=== PATIENT | male | born 1930 | race African-American/Black ===

== ENCOUNTER 2016-11-03 20:41 | Emergency (ER) | payer MEDICARE, OTHER ==
[~2016-11-03 20:41] MED LIST: Iopamidol 370 76% 100 ML VIAL ONE
[2016-11-03] MEDS ORDERED: Ondansetron HCl/PF 4 MG/2 ML Vial ONE (21:11)
[2016-11-03] MEDS ORDERED: Fentanyl 100 MCG/2 ML VIAL ONE ×2 (21:11→22:06)
[2016-11-03 21:17] LABS: Hematocrit 32.9 % (42.0-52.0); Mean Platelet Volume 6.2 fL (7.4-10.4); Neutrophil 73 % (42-75); Red Blood Cell (RBC) Count 3.74 mill/uL (4.70-6.10); White Blood Cell (WBC) Count 8.8 thou/uL (4.8-10.8)
[2016-11-03 21:31] LABS: Troponin I 0.013 ng/mL (< 0.028)
[2016-11-03 21:35] LABS: ALT (SGPT) 7 U/L (0-55); AST (SGOT) 13 U/L (5-34); Alkaline Phosphatase 62 U/L (40-150); Amylase 103 U/L (20-160); Anion Gap 18 mmol/L (10-20); BUN (Urea Nitrogen) 18 mg/dL (8.4-25.7); Bilirubin, Total 0.4 mg/dL (0.2-1.2); CK (CPK) 78 U/L (30-200); Calc. Creatinine Clearance 0 mL/min (70-130); Carbon Dioxide 23 mmol/L (23-31); Chloride 105 mmol/L (98-107); Estimated GFR-MDRD 82; Globulin 2.9 g/dL (2.4-3.5); Lipase 19 U/L (8-78)
[2016-11-03 22:13] LABS: Bilirubin Negative (Negative); Blood, Urine Trace (Negative); Glucose, Urine (Dipstick) Negative (Negative); Ketone, Urine Negative (Negative); Nitrite Negative (Negative); Protein, Urine (Dipstick) Negative (Neg-Trace); Urobilinogen 0.2 mg/dL (0.2-1.0)
[2016-11-03 22:14] LABS: Bacteria/HPF None Seen HPF (None Seen); Squamous Epithelial None Seen HPF (0-3); WBC/HPF None Seen HPF (0-3)
--- NOTE | 2016-11-03 22:15 | CT ---
CT OF ABDOMEN AND PELVIS PERFORMED WITH CONTRAST ENHANCEMENT: 11/03/16 COMPARISON: CT of the abdomen performed 04/04/16. Also, abdomen CT and gallbladder ultrasound performed 04/12/16. The lung bases show some chronic change. The liver shows no focal abnormalities. There is some pneumobilia present which is not seen on the p revious studies of uncertain etiology. There is no ductal dilatation seen. The gallbladder is disten ded. There is suggestion of some focal areas of wall thickening within the gallbladder. This could b e on the basis of some small stones. The pancreas is atrophic. The spleen is normal in size. Right and left adrenal glands are unremarkable. Bilateral renal cysts are noted. There is no signif icant periaortic or mesenteric adenopathy. The abdominal aorta is minimally ectatic. There is fairly minimal stool within the colon. Minimal fluid filled distention to the small bowel loops and cecum are noted. CT OF PELVIS PERFORMED WITH CONTRAST ENHANCEMENT: A fat containing left inguinal hernia is noted. No evidence of adenopathy or mass. There are arthrit ic changes of the spine and hips. IMPRESSION: 1. Small hiatal hernia. There is mild fluid filled distention of the stomach but no signs for o bstruction. 2. Pneumobilia. The air within the biliary system is of uncertain etiology. I am not certain if the patient has had some type of endoscopic procedure in the past that would account for this. 3. Mild gallbladder distention. If clinically indicated, ultrasound would be suggested for furt her assessment. 4. Bilateral renal cysts. 5. The appendix is difficult to definitively identify, but I see no inflammatory process in thi s area. 1. POS: JUAN
== END 2016-11-03 22:53 | disposition home or self-care (01) ==
LOC: NAV ERS 20:41
DX: K83.8 Other specified diseases of biliary tract (principal); E11.9 Type 2 diabetes mellitus without complications; I10 Essential (primary) hypertension; J44.9 Chronic obstructive pulmonary disease, unspecified; Z79.84 Long term (current) use of oral hypoglycemic drugs; Z79.82 Long term (current) use of aspirin; Z87.891 Personal history of nicotine dependence
CPT/HCPCS: 36415; 74177; 80053; 81003; 81015; 82150; 82550; 82553; 83690; 84484; 85025; 93005; 96374; 96375; 96376; J2405; J3010

== ENCOUNTER 2016-11-27 08:31 | Outpatient (CLI) | payer MEDICARE, MEDICAID ==
[2016-11-27 12:31] LABS: Hemoglobin A1c 5.6 % (4.0-6.0)
== END 2016-11-27 08:32 ==
LOC: NAVSJIPCSP 08:31
PROVIDERS: ATTEND Internal Medicine
DX: E78.5 Hyperlipidemia, unspecified (principal); D64.9 Anemia, unspecified; E11.42 Type 2 diabetes mellitus with diabetic polyneuropathy
CPT/HCPCS: 36415; 80061; 83036

== ENCOUNTER 2017-04-24 09:21 | Outpatient (CLI) | payer MEDICARE ==
[2017-04-24 17:26] LABS: Hemoglobin A1c 5.8 % (4.0-6.0)
== END 2017-04-24 09:22 | disposition home or self-care (01) ==
LOC: NAVSJIPCSP 09:21
PROVIDERS: ATTEND Internal Medicine
DX: E78.5 Hyperlipidemia, unspecified (principal); E11.42 Type 2 diabetes mellitus with diabetic polyneuropathy; Z92.29 Personal history of other drug therapy
CPT/HCPCS: 36415; 80061; 83036

== ENCOUNTER 2019-11-14 21:54 | Inpatient (IN) | payer MEDICARE, MEDICAID ==
--- NOTE | 2019-11-14 22:38 | RAD ---
EXAM: Portable chest PROVIDED CLINICAL HISTORY: Shortness of breath COMPARISON: 12/30/2015 FINDINGS: Cardiac and mediastinal silhouette is within normal limits. No focal consolidation, pleural fluid or pneumothorax evident. Extensive chronic lung changes appear similar to prior. IMPRESSION: No evidence for an acute cardiopulmonary process.
[2019-11-14 22:47] LABS: #Lymphocytes 1.2 thou/uL (1.20-3.40); #Monocytes 0.6 thou/uL (0.11-0.59); #Neutrophils 2.8 thou/uL (1.40-6.50); %Basophils 0.6 % (0.0-1.0); %Eosinophils 0.4 % (0.0-10.0); %Lymphocytes 25.7 % (21.0-51.0); %Monocytes 13.5 % (0.0-10.0); %Neutrophils 59.9 % (42.0-75.0); Anisocytosis MODERATE=16-30 cells (100X) (0-5/hpf); Hemoglobin 6.4 g/dL (14.0-18.0); MDiff Complete? YES; Macrocytosis MODERATE=16-30 cells (100X) (0-5/hpf); Mean Corpuscular HGB CONC 29.2 g/dL (32.0-36.0); Mean Corpuscular Hemoglobin 23.8 pg (27.0-31.0); Mean Corpuscular Volume 81.6 fL (78.0-98.0); Mean Platelet Volume 5.6 fL (7.4-10.4); Platelet Count 352 thou/uL (130-400); Platelet Morphology Comment Appears Adequate; Poikilocytosis MODERATE=16-30 cells (100X) (0-5/hpf); RBC Distribution Width 20.4 % (11.5-14.5); Red Blood Cell (RBC) Count 2.68 mill/uL (4.70-6.10); Target Cells MODERATE= 6-15 cells (100X) (0-1/hpf); White Blood Cell (WBC) Count 4.6 thou/uL (4.8-10.8)
[2019-11-14 22:53] LABS: ALT (SGPT) 6 U/L (8-55); AST (SGOT) 11 U/L (5-34); Albumin 2.9 g/dL (3.4-4.8); Alkaline Phosphatase 93 U/L (40-110); Anion Gap 14 mmol/L (10-20); BUN (Urea Nitrogen) 10 mg/dL (8.4-25.7); Bilirubin, Total 0.3 mg/dL (0.2-1.2); Calc. Creatinine Clearance 0 mL/min (70-130); Carbon Dioxide 24 mmol/L (23-31); Chloride 102 mmol/L (98-107); Estimated GFR-MDRD Greater than 90; Globulin 3.1 g/dL (2.4-3.5); Glucose 109 mg/dL (83-110); Potassium 4.3 mmol/L (3.5-5.1); Sodium 136 mmol/L (136-145)
[2019-11-15] MEDS ORDERED: Sodium Chloride 0.9% 500 ML ONE ×2 (00:48→01:02)
[2019-11-15] MEDS ORDERED: Ondansetron PF 4 MG/2 ML Vial ONE (01:21)
[2019-11-15] MEDS ORDERED: Furosemide 20 MG/2 ML VIAL ONE (02:00)
[2019-11-15 04:37] VITALS: BMI 16.5
[2019-11-15 07:37] LABS: #Lymphocytes 0.6 thou/uL (1.20-3.40); #Monocytes 0.7 thou/uL (0.11-0.59); #Neutrophils 6.3 thou/uL (1.40-6.50); %Basophils 0.6 % (0.0-1.0); %Lymphocytes 7.2 % (21.0-51.0); %Monocytes 9.1 % (0.0-10.0); %Neutrophils 83.1 % (42.0-75.0); Hemoglobin 9.7 g/dL (14.0-18.0); Mean Corpuscular HGB CONC 31.3 g/dL (32.0-36.0); Mean Corpuscular Hemoglobin 25.7 pg (27.0-31.0); Mean Corpuscular Volume 82.2 fL (78.0-98.0); Mean Platelet Volume 5.5 fL (7.4-10.4); Platelet Count 279 thou/uL (130-400); RBC Distribution Width 17.5 % (11.5-14.5); Red Blood Cell (RBC) Count 3.77 mill/uL (4.70-6.10); White Blood Cell (WBC) Count 7.6 thou/uL (4.8-10.8)
[2019-11-15 07:53] LABS: Anion Gap 16 mmol/L (10-20); Globulin 3.2 g/dL (2.4-3.5)
[2019-11-15 08:23] LABS: ALT (SGPT) 7 U/L (8-55); AST (SGOT) 12 U/L (5-34); Albumin 2.9 g/dL (3.4-4.8); Alkaline Phosphatase 94 U/L (40-110); BUN (Urea Nitrogen) 10 mg/dL (8.4-25.7); Bilirubin, Total 0.6 mg/dL (0.2-1.2); Calc. Creatinine Clearance 41 mL/min (70-130); Calcium 8.1 mg/dL (7.8-10.44); Carbon Dioxide 25 mmol/L (23-31); Chloride 98 mmol/L (98-107); Estimated GFR-MDRD Greater than 90; Glucose 93 mg/dL (83-110); Potassium 4.2 mmol/L (3.5-5.1); Protein, Total 6.1 g/dL (5.8-8.1); Sodium 135 mmol/L (136-145)
--- NOTE | 2019-11-15 08:34 | CT ---
PRELIMINARY REPORT/[facility]/EMERGENCY AFTER HOURS PROCEDURE: EXAM: CT Abdomen and Pelvis with Intravenous Contrast CLINICAL HISTORY: ABD PAIN. CHOLECYSTECTOMY 2018. TECHNIQUE: Axial computed tomography images of the abdomen and pelvis with intravenous contrast. CONTRAST: With; ISOVUE 370 96 ml COMPARISON: None provided. FINDINGS: LUNG BASES: No basilar airspace consolidation or pleural effusion. Bibasilar subsegmental atelectasi s. Centrilobular emphysematous changes. Coronary artery disease. LIVER: The liver is hypoenhancing. Irregular hypoenhancing lesion in the right lobe of the liver scott suring 2.1 cm, series 2 image 16. Hypoenhancing lesion in the right lobe of the liver measuring 0.7 cm. Nodular enhancing lesion in the right lobe measuring 0.6 cm. Hypoenhancing lesion in the left l obe liver measuring 2.3 cm. GALLBLADDER AND BILE DUCTS: Unremarkable. No calcified stone. No ductal dilation. PANCREAS: Pancreatic atrophy. SPLEEN: Unremarkable. ADRENAL GLANDS: Unremarkable. KIDNEYS, URETERS, AND BLADDER: Several bilateral simple renal cyst measuring up to 1.3 cm on the righ t side and 2.8 cm on the left side. No hydronephrosis or nephrolithiasis. No ureteral or bladder crystal culi. STOMACH AND BOWEL: No obstruction. No wall thickening. No CT evidence of colitis or acute diverticuli tis. APPENDIX: No CT evidence for appendicitis. PERITONEUM: No free fluid. No free air. LYMPH NODES: No lymphadenopathy. REPRODUCTIVE: The prostate gland is enlarged. The seminal vesicles are normal. VASCULATURE: No aortic aneurysm. Atherosclerosis. BONES: No fracture or suspicious osseous abnormality. Multilevel degenerative disc disease. 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 ABDOMINAL WALL AND SOFT TISSUES: Unremarkable. IMPRESSION: No acute intra-abdominal or pelvic abnormality. Fat infiltration of the liver. Several hypoenhancing lesions in the liver and nodular enhancing lesi on in the right lobe of the liver. Follow-up with a liver protocol MRI is recommended. Pancreatic atrophy. Prostatomegaly. ELECTRONICALLY SIGNED BY: Ismael Cosme MD Nov 15, 2019 2:58:33 AM SHIPPING CLERK CRATING This report is intended for review by the ordering physician only, in accordance of law. If you recei ve this report in error, please call [facility] at [phone]. FINAL REPORT CT ABDOMEN AND PELVIS WITH IV CONTRAST: Comparison made to CT of 11/03/16. There are irregular ill-defined areas of low attenuation in the liver as described on the preliminary report. These are new from the prior study. The stomach is distended. Spleen and pancreas unremarkable. Post cholecystectomy changes. Renal cysti c lesions are noted. Small bowel loops show nonspecific distention. Aorta is calcified. No evidence of acute process. I am in agreement with the preliminary report issued by [facility]. POS: JUAN
[2019-11-15] MEDS ORDERED: Iopamidol 370 76% 100 ML VIAL ONE ×2 (09:00)
--- NOTE | 2019-11-15 17:59 | HP ---
CHIEF COMPLAINT: Fatigue, weakness, and shortness of breath. BRIEF HISTORY: This is an 88-year-old male, whom I have taken care of for a long time, presented to the emergency room with apparently worsening shortness of breath, weakness, and fatigue. Workup showed hemoglobin of 6.1. He was admitted to the hospital and given 2 units of blood. He also looked very cachectic and CT abdomen and pelvis was done which shows multiple nodules in the liver, which is not diagnostic of anything, but Radiology recommends MRI with liver protocol. This morning, the patient's hemoglobin is more than 9 and he apparently ate better, and I had a long discussion with his and the rest of his family including his son and [id number] and I think his sisters. The patient has always refused any screening tests and he still does not want any further testing. also understands that this may be cancer, but this may not be, but either way they do not want any aggressive treatment. They said that even if this is cancer, they are not going to undergo any chemotherapy and they certainly do not want to do a biopsy, so the plan is comfort care at present and they are hoping that since he was doing better with the blood transfusion that he will continue to do well at home, so we are going to get his CBC checked tomorrow and if it is more than 8, then we will discharge him home. He does have a followup appointment with me in about 10 days. They do want him to be DNR and I will place the order. PAST MEDICAL HISTORY: 1. Chronic obstructive pulmonary disease. 2. Diabetes mellitus, now on diet control. 3. Dyslipidemia, not on any medications. 4. Hypertension. 5. Iron-deficiency anemia, chronic. PAST SURGICAL HISTORY: Laparoscopic cholecystectomy. MEDICATIONS: He was supposed to be on lisinopril 10 mg daily and Breo Ellipta one puff daily. I am not sure if he was taking his lisinopril or the Breo. He is also supposed to be on iron tablets twice a day, for which he has a long-standing history of noncompliance. FAMILY HISTORY: Father at 80 years likely of old age. Mother at 80 years had history of diabetes. PSYCHOSOCIAL HISTORY: Former smoker, had more than a [id number] history of smoking. No alcohol or recreational drug abuse. and good family support. ALLERGIES: NO KNOWN DRUG ALLERGIES. REVIEW OF SYSTEMS: CARDIOVASCULAR SYSTEM: Denies any chest pain. Did have dyspnea on exertion. No PND, orthopnea, or pedal edema. RESPIRATORY SYSTEM: Occasional cough. Denies any hemoptysis or pleuritic-type chest pain. GASTROINTESTINAL SYSTEM: Poor appetite. He apparently also does not have good dentition, so only eats soft foods. No change in bowel habits. No nausea, vomiting, diarrhea, hematemesis, melena, or hematochezia. GENITOURINARY SYSTEM: Occasional urgency and hesitancy. No hematuria. CENTRAL NERVOUS SYSTEM: Progressively worsening weakness. EXTREMITIES: Frequent joint pain. Significant muscle atrophy. He is pretty much skin and bones at the present time. SKIN: Denies any rash. HEENT: Denies any difficulty with vision, speech, or swallowing. He is hard of hearing, which is chronic. PHYSICAL EXAMINATION: GENERAL: This is a pleasant 88-year-old cachectic male, who is resting comfortably in bed and denies any complaints. He is able to recognize me. He responds appropriately to simple questions. VITAL SIGNS: He is afebrile, heart rate 88, respirations 18, oxygen saturation 100% on room air, blood pressure 118/72. HEENT: Normocephalic and atraumatic. Bitemporal muscle wasting is noted. CARDIOVASCULAR SYSTEM: S1 and S2 plus. Rate and rhythm, regular. RESPIRATORY SYSTEM: Normal vesicular breath sounds. ABDOMEN: Soft and nontender. Scaphoid. Bowel sounds heard in all quadrants. EXTREMITIES: Without cyanosis or clubbing. Significant muscle atrophy noted. CENTRAL NERVOUS SYSTEM: Grossly nonfocal except for generalized weakness. LABORATORY VALUES: On admission, his white count was 4.6, H and H of 6.4 and 21.8. This morning, white count is 7.6, H and H of 9.7 and 31.0. This is after 2 units. He still continues to have microcytic indices. Sodium 136, potassium 4.3, BUN and creatinine are 10 and 0.94. AST and ALT are within normal limits. Albumin is 2.9. IMPRESSION: 1. Diabetes mellitus, type 2, on diet control. Hemoglobin A1c has always been in the normal range for the last couple of years. 2. History of dyslipidemia. I am pretty sure it is normal now with his cachexia and malnutrition, which I would rate it as probably [id number] protein-calorie malnutrition. 3. Hypertension. He is not on any medications here and his blood pressure is 118/72. 4. Iron-deficiency anemia, chronic. 5. Chronic obstructive pulmonary disease, was prescribed Breo and then DuoNeb via nebulizer, but he apparently has not been compliant with either one of those. PLAN: 1. Nutritional support with regular diet. 2. Ensure t.i.d. 3. Recheck CBC in the morning and if it is more than 8, family wants to take him home and then see how he progresses. I did talk to them about hospice, they will think about it and let me know. They do not want any aggressive measures at this point. They have not decided on whether they may want him to have blood transfusions. They do want him to be a DNR. Job ID: [id number]
[2019-11-16 05:27] LABS: #Basophils 0.1 thou/uL (0.0-0.2); #Eosinphils 0.1 thou/uL (0.0-0.7); #Lymphocytes 0.9 thou/uL (1.20-3.40); #Monocytes 0.8 thou/uL (0.11-0.59); #Neutrophils 5.8 thou/uL (1.40-6.50); %Basophils 0.8 % (0.0-1.0); %Eosinophils 0.7 % (0.0-10.0); %Lymphocytes 12.2 % (21.0-51.0); %Monocytes 10.9 % (0.0-10.0); %Neutrophils 75.4 % (42.0-75.0); Hemoglobin 8.9 g/dL (14.0-18.0); Mean Corpuscular HGB CONC 32.3 g/dL (32.0-36.0); Mean Corpuscular Hemoglobin 26.3 pg (27.0-31.0); Mean Corpuscular Volume 81.4 fL (78.0-98.0); Mean Platelet Volume 6.7 fL (7.4-10.4); Platelet Count 287 thou/uL (130-400); RBC Distribution Width 17.2 % (11.5-14.5); Red Blood Cell (RBC) Count 3.38 mill/uL (4.70-6.10); White Blood Cell (WBC) Count 7.7 thou/uL (4.8-10.8)
[2019-11-16 06:21] VITALS: BP 112/63; TEMP 98.2
--- NOTE | 2019-11-16 14:21 | DIS ---
DATE OF ADMISSION: 11/15/2019 DATE OF DISCHARGE: 11/16/2019 PRINCIPAL DIAGNOSIS: Profound anemia requiring 2 units of blood transfusion. SECONDARY DIAGNOSES: 1. Chronic obstructive pulmonary disease. 2. Diabetes mellitus, type 2, now on diet control. 3. Dyslipidemia, not on any medicine and probably normal now that he is hardly eating anything. 4. Hypertension, was on lisinopril, but has not been compliant, and he did not require any blood pressure medicines while he has been here. 5. Multiple nodules in the liver, undetermined. Radiology recommends MRI for more definition, and he probably will end up needing a biopsy, which family does not want to do. COMPLICATIONS: None. ADVERSE REACTIONS: None. PROCEDURES PERFORMED: Blood transfusions. CONSULTATIONS: None. HOSPITAL COURSE: The patient was admitted due to fatigue, weakness, and shortness of breath. He was noted to have a hemoglobin of 6.1. He has a longstanding history of iron deficiency anemia and has refused any workup for it including EGD and colonoscopy. He has had multiple CT scans, which have been essentially unremarkable. His iron levels have been consistently low, and he has also not been consistent with taking iron tablets. He presented with significant anemia and was given 2 units of blood transfusion. He also has lost more weight since I last saw him. CT abdomen and pelvis was done, which shows multiple nodules in the liver. Radiology unable to determine and recommended MRI with liver protocol. I had a long discussion with the patient, his , and family members, and they state that he does not want any aggressive measures, and they really are not going to do any biopsy even if the MRI shows that this may be malignancy and really want to focus on comfort, so plan is for him to be discharged home since his hemoglobin is still above 7 and to follow up in my office, he has an appointment in 10 days and monitor it, and if he is not doing well at home and declines again at home, then is agreeable to talk to Hospice. PHYSICAL EXAMINATION: VITAL SIGNS: On the day of discharge, he is afebrile. Heart rate 83, respirations 20, oxygen saturation 98% on room air, blood pressure 112/63. CARDIOVASCULAR: S1 and S2 plus. RESPIRATORY: Normal vesicular breath sounds. ABDOMEN: Soft, nontender, scaphoid. Bowel sounds heard in all quadrants. EXTREMITIES: Without cyanosis or clubbing. Significant muscle atrophy. CENTRAL NERVOUS SYSTEM: Generalized weakness. Otherwise, nonfocal. LABORATORY DATA: CBC this morning shows a white count of 7.7, H and H are 8.9 and 27.5, platelet count of 287. DISCHARGE MEDICATIONS: Breathing treatments with albuterol and Atrovent q.i.d. p.r.n., he has that at home. Tylenol 650 q.6 p.r.n. DIET: Nutritional support. ACTIVITY: As tolerated. FOLLOWUP: He is to follow up in my office in 2 weeks. Either family or the patient is to call me with any questions or concerns. They do not want as stated any aggressive measures. He was made a DNR in the hospital. It was witnessed by nursing, and looks like if he does not improve at home or if he declines, then they are willing to consider hospice. For full details, please see chart. Job ID: [id number]
--- NOTE | 2019-11-17 22:07 | PQF ---
Walter Godinez POLLACHI MD [id number] CLINICAL DOCUMENTATION CLARIFICATION FORM: POST DISCHARGE Addendum to original discharge summary date: ____ Late entry note date: __ Date:11/17/2019 ATTN:SILAS LOZADA MD Please exercise your independent, professional judgment in responding to the clarification form. Clinical indicators are provided on the bottom of this form for your review Please check appropriate box(s): [ x ] Mild protein Calorie Malnutrition [ ] Moderate protein Calorie Malnutrition [ ] Severe protein Calorie Malnutrition [ ] Other Malnutrition (please specify) __ [ ] Underweight without malnutrition [ ] Cachexia [ ] Other diagnosis [ ] Unable to determine In addition, please specify: Present on Admission (POA): [ x] Yes [ ] No [ ] Unable to determine CLINICAL INDICATORS - SIGNS / SYMPTOMS / LABS Fatigue, weakness -Documented in H&P on 11/14 by Silas Maya I am pretty sure it is normal now with his cachexia and malnutrition, Which i would rate it as probably mild- to - moderate protein calorie malnutrition- Documented in H&P on 11/14 by Silas Maya Albumin is 2.9-Documented in H&P on 11/14 by Silas Maya BMI-16.5-Documented in FNS assessment RISK FACTORS Dyslipidemia-Documented in H&P on 11/14 by Silas Maya TREATMENT: Nutritional support with regular diet-Documented in H&P on 11/14 by Silas Maya Ensure t.i.d-Documented in H&P on 11/14 by Silas Maya Moderate Malnutrition (in acute illness) Energy Intake: <75% of estimated energy requirement for > 7 days Weight Loss: 1-2%/1 week; 5%/ 1 month; 7.5%/3 months Other: mild body fat loss; mild muscle mass loss; mild fluid accumulation; Severe Malnutrition (in acute illness) Energy Intake: < 50% of estimated energy requirement for > 5 days Weight Loss: >1-2%/1 week; >5%/1 month; >7.5%/3 months Other: moderate body fat loss; moderate muscle mass loss; moderate- severe fluid accumulation; measurably reduced land surveyor assistant strength Moderate Malnutrition (in chronic illness) Energy Intake: <75% of estimated energy requirement for >1 month Weight Loss: 5%/1 month; 7.5%/3 months; 10%/6 months; 20%/1 year Other: mild body fat loss; mild muscle mass loss; mild fluid accumulation Severe Malnutrition (in chronic illness) Energy Intake: <75% of estimated energy requirement for >1 month Weight Loss: >5%/1 month; >7.5%/3 months; >10%/6 months; >20%/1 year Other: severe body fat loss; severe muscle mass loss; severe fluid accumulation ; measurably reduced land surveyor assistant strength [employer] (This form is maintained as a part of the permanent medical record) 2014 [employer]. All Rights Reserved [email or web address]
== END 2019-11-16 10:32 | disposition home or self-care (01) | DRG 812 ==
LOC: NAV ERS 21:54 → NAV ACUTE 11-15 03:23
PROVIDERS: ADMIT Internal Medicine; ATTEND Internal Medicine
PROC: 30233N1 Transfusion of Nonautologous Red Blood Cells into Peripheral Vein, Percutaneous Approach (ICD-10-PCS; principal; 2019-11-15)
DX: D50.9 Iron deficiency anemia, unspecified (principal); Z68.1 Body mass index [BMI] 19.9 or less, adult; E44.1 Mild protein-calorie malnutrition; Z66 Do not resuscitate; J44.9 Chronic obstructive pulmonary disease, unspecified; E11.9 Type 2 diabetes mellitus without complications; E78.5 Hyperlipidemia, unspecified; I10 Essential (primary) hypertension; K76.9 Liver disease, unspecified; Z90.49 Acquired absence of other specified parts of digestive tract; Z83.3 Family history of diabetes mellitus; Z87.891 Personal history of nicotine dependence
CPT/HCPCS: 36415; 36416; 36430; 71045; 74177; 80053; 84484; 85025; 86850; 86900; 86901; 93005; 94760; 96374; 96375; J1940; J2405; J7050; P9016; Q9967